=== PATIENT | female | born 1985 ===

== ENCOUNTER 2017-01-31 07:26 | Inpatient (IN) | payer MEDICAID ==
[2017-01-31] MEDS ORDERED: Sodium Citrate/Citric Acid 15 ml Sol PO ONE (07:33)
[2017-01-31] MEDS ORDERED: cefOXitin IV 2 gm in Dextrose 2 GM/50 ML BAG IVPB ONE ×2 (07:33→08:00)
[2017-01-31] MEDS ORDERED: Lactated Ringer's 1,000 ML IV SCH ×2 (07:45→08:45)
[2017-01-31] MEDS ORDERED: Sodium Citrate/Citric Acid 15 ml Sol ONE (08:00)
[2017-01-31] MEDS ORDERED: Oxytocin 20 units in LR 2,000 ML IV ONE (08:01)
--- NOTE | 2017-01-31 08:15 | OBADHP ---
Datetime: 01/31/2017 07:58 Admit Comment, IP Provider: 30 yo , LMP unsure, SCOTT 02/07/17, EGA 39 weeks by ultrasound at 17w 2d, for elective repeat C/S; desires permanent sterilization. (+) AFM; denies LOF, VB, Ctx. issues: NHCAC, denies issues. Record revealed abnormal QUAD screen; no action taken. No krishna omic ultrasound - per patient "insurance wouldn't pay for it"; and "they wouldnt let me pay for the u ltrasound; said it would have been fraud". 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 Denies abnormal Pap PMH: denies PSH: C/S NKDA Meds: none Soc Hx. Denies tobacco, illicit drug or EtOH use. 06/2016; with FOB x 4 years. 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 Lives with and daughter Fam Hx: Mother alive 50 y.o. - DM. Father alive 53 y.o. - no med issues. No known fam h/o cancer P.E.: as above. Mildly obese in NAD. Awake, alert, oriented to time, person and place. Pleasant an d cooperative. Assessment: 31 y.o. P1, 39 weeks; prev C/S - for elective repeat C/S with BTL (papers signed ). Reaffimation of the latter along with consents for anticipated procedure were obtained; R/B/C di scussed. Patient offered no questions. Catefory 1 tracing. Patient last ate 1930 hours 01/30/17. [facility] stable. Plan: 1) Admit 2) NPO 3) Admission labs 4) Continuous EFM 5) Notify anesthesia 6) Notify peds 7) Abdomnal prep and shave 8) Resendiz 9) Mefoxin 10) pediatric audiologist to O.R. Pelvic Type - PN: Adequate Extremities - PN: Normal Abdomen - PN: Normal Back - PN: Normal Breast - PN: Not Done Lungs - PN: Normal Heart - PN: Normal Thyroid - PN: Not Done Neurologic - PN: Normal HEENT - PN: Normal General - PN: Normal Presentation-Admit: Vertex FHR - Baseline A Provider: 140 Contraction Comments Provider: irregular Comments, ACOG Physical Exam: Abdomen: Gravid. Soft. Non tender in all quadrants. Fundal height 40cm All other systems reviewed and are negative Gestation - Est Wks by US: 39.0 IP Hx Assessment: The History has been Reviewed and is Current Vital Signs Provider: Reviewed IP Chief Complaint: Scheduled Section NICHD Variability Prov Fetus A: Moderate 6-25bpm NICHD Accel Fetus A IP Provider: [id number] FHR Category Provider Fetus A: Category I NICHD Decel Fetus A IP Provider: None Dilatation, Provider: FT Effacement, Provider: 0 Station, Provider: -3 Genitourinary Exam: Normal DTRs - PN: Not Done IP Adm Impression: Term, intrauterine ; No Active Labor; Intact Membranes IP Admit Plan: Admit to unit; Initiate Section protocol
[2017-01-31 08:25] LABS: BASO % 0.5 % (0.0-2.0); EOS # 0.1 K/uL (0.0-0.7); HEMOGLOBIN 11.3 g/dL (11.0-16.0); LYMPH % 35.9 % (20.0-40.0); MEAN CELL VOLUME 85.2 fL (81.0-99.0); MEAN CORPUSCULAR HEMOGLOBIN 27.6 pg (27.0-31.0); MEAN CORPUSCULAR HGB CONC 32.4 g/dL (33.0-37.0); MEAN PLATELET VOLUME 9.1 fL (7.2-11.7); MONO # 0.5 K/uL (0.0-0.8); MONO % 9.7 % (0.0-10.0); NEUT % 52.9 % (50.0-75.0); NRBC % 0.1 % (0.0-2.0); RBC 4.11 Mil/uL (3.80-5.20); RED CELL DISTRIBUTION WIDTH 14.8 % (11.5-14.5); WHITE BLOOD COUNT 5.6 K/uL (4.8-10.8)
[2017-01-31 08:42] LABS: SQUAMOUS EPITHIAL 5 /hpf (0-5); URINE BILIRUBIN NEGATIVE (NEGATIVE); URINE BLOOD NEGATIVE (NEGATIVE); URINE CLARITY Clear (Clear); URINE COLOR Yellow (YELLOW); URINE GLUCOSE (UA) NORMAL (Normal); URINE LEUKOCYTE ESTERASE NEG Leu/uL (Negative); URINE NITRATE NEGATIVE (NEGATIVE); URINE PROTEIN NEGATIVE (NEGATIVE); URINE UROBILINOGEN NORMAL mg/dL (0.2-1.0)
[2017-01-31 08:51] LABS: ALB/GLOB RATIO 0.9 (1.0-2.1); AST/SGOT 17 U/L (14-36); GFR AFRICAN-AMERICAN > 60; GFR NON-AFRICAN AMERICAN > 60
[2017-01-31 08:52] LABS: ALT/SGPT 25 U/L (9-52); BLOOD UREA NITROGEN 8 mg/dL (7-17); CALCIUM 8.5 mg/dl (8.6-10.4)
[2017-01-31] MEDS ORDERED: ePHEDrine 50 mg/ml Inj ONE (09:31)
--- NOTE | 2017-01-31 13:39 | PCM.SURG1 ---
Surgeon's Initial Post Op Note - Surgeon's Notes Surgeon: Gilma Lockwood MD Sales Administration Specialist: Enrique Erickson MD. Second Sales Administration Specialist: Keila Castro DO, PGY-1 Type of Anesthesia: Spinal Anesthesia Administered By: Carey Pre-Operative Diagnosis: 39 weeks Gestation. Previous Caesarean section. Desires permanent sterilization Operative Findings: Live female ; ROSA ELENA position. Weight 8lb. Apgars 9/9. Normal uterus; normal ovaries and fallopian tubes, bilaterally Post-Operative Diagnosis: Same Operation Performed: Repeat transverse lower uterine segment Caesarean section; modified Luis procedure Specimen/Specimens Removed: Portion of right and left fallopian tubes Estimated Blood Loss: EBL {In ML}: 800 (U.O. 200 mL clear urine, IVFs 2000 mL LR ) Blood Products Given: N/A Drains Used: No Drains Post-Op Condition: Good Date of Surgery/Procedure: 01/31/17 Time of Surgery/Procedure: 11:30
[2017-01-31] MEDS ORDERED: Morphine Monoject Barrel PCA 1mg/ml IV PRN (14:00)
[2017-01-31 16:48] VITALS: RESP 20; O2SAT 97
--- NOTE | 2017-02-01 04:59 | OP ---
PROCEDURE DATE: 01/31/2017 PREOPERATIVE DIAGNOSES: A 39 weeks gestation, previous Caesarean section, desiring permanent sterilization. POSTOPERATIVE DIAGNOSES: A 39 weeks gestation, previous Caesarean section, desiring permanent sterilization. PROCEDURE PERFORMED: Repeat transverse lower uterine segment Caesarean section and modified Luis procedure. SURGEON: Gilma Lockwood MD PROTECTIVE SIGNAL INSTALLER: Enrique Erickson MD SECOND PROTECTIVE SIGNAL INSTALLER: Keila Castro. DO, PGY1. TYPE OF ANESTHESIA: Spinal. ANESTHESIA ADMINISTERED BY: Poonam Patino MD. OPERATIVE FINDINGS: Live female infant in the right occipital anterior position, weight 8 pounds, Apgars 9 and 9 at 1 and 5 minutes respectively. Normal uterus and normal ovaries and fallopian tubes bilaterally. IV FLUID INTAKE: 2000 mL of lactated Ringer's. ESTIMATED BLOOD LOSS: 800 mL. URINE OUTPUT: 200 mL of clear urine. COMPLICATIONS: None. SPECIMEN: Portion of right and left fallopian tubes. DESCRIPTION OF PROCEDURE: The patient was taken to the operating room after having obtained informed consent of the anticipated procedure. This included a discussion of possible risks and complications including, but not limited to infection requiring antibiotics, hemorrhage requiring blood transfusion, repair of any damaged internal organs, possible Caesarean hysterectomy. Consents were dated, signed, witnessed and placed in the chart. The patient received Mefoxin 2 grams prior to being escorted into the operating room and a Resendiz indwelling catheter had been inserted under sterile conditions. Once in the operating room, she was placed on the operating room table in sitting position where spinal anesthesia was administered without incident. She was immediately repositioned into a supine position. heart tones was auscultated at 156 beats per minute. The abdomen was subsequently prepped and she was draped in the usual sterile fashion. After assuring an adequate level of anesthesia, using the scalpel, a Pfannenstiel incision was made through the previous scar. The incision was carried down through the subcutaneous tissue with the Bovie electrocautery to the level of the fascia. The fascia was identified, it was nicked in the midline and the incision was extended bilaterally using the Bovie electrocautery. The rectus muscle was dissected off the overlying fascia; then the rectus muscle was in the midline by a sharp dissection. The peritoneal cavity was entered by sharp dissection. The vesicouterine reflection was identified and the bladder flap was created. Using the scalpel, a transverse incision was made on the lower uterine segment. The incision was extended bilaterally using the bandage scissors. Amniotomy was performed and a copious amount of clear fluid was obtained. Atraumatic delivery of infant with the findings as above then ensued. Once in the operating field, the 's mouth and nose were bulb suctioned as the umbilical cord was doubly clamped and cut. The was handed off the operative field to the pediatricians in attendance. Manual extraction of the placenta then ensued without incident; it was grossly intact with three vessels present in the cord. The uterus was then exteriorized for closure. The uterine incision was closed in one layer using 0 Vicryl. This was in a running interlocking fashion. Additional [id number]-[id number] stitches were placed at 3 locations to assure adequate hemostasis using 2-0 Biosyn. After assuring adequate hemostasis on the uterine incision, attention was directed to the posterior aspect of the uterus; pelvic viscera as above. Beginning with the right fallopian tube in the ampullary segment, a portion of the mesosalpinx was grasped using Tori clamp. Using plain catgut in two ties, a knuckle was created. The intervening mesosalpinx was pierced. This segment of the fallopian tube was resected and submitted to the pathology for confirmation. Adequate hemostasis was assured. A similar procedure was performed on the left fallopian tube. After assuring adequate hemostasis, attention was redirected to the anterior aspect of the uterus. Surgicel was placed along the uterine incision and the bladder flap was reapproximated using 2-0 chromic in a running fashion. Copious irrigation had been performed of the abdominal cavity. The uterus was then returned to the abdominal cavity. The paracolic gutters were all cleared of debris and again hemostasis was assured in the ligated ends of both fallopian tubes. The parietal peritoneum was reapproximated using 2-0 chromic in a running fashion. The muscle was reapproximated in the midline using 2-0 chromic in interrupted stitches. The fascia was reapproximated using 1-0 Vicryl in a running fashion in two halves. The subcutaneous tissue was reapproximated using plain catgut in a running fashion. The skin was reapproximated using surgical clips. A pressure dressing was applied. The patient was then repositioned in a frog-like position. Bimanual exploration was performed. The uterus was evacuated of its clots. The uterus was noted to be firm and contracted. The patient was transferred back to R #3 in stable condition. Infant had been transferred to the [facility] also in stable condition. Dr. Erickson was present throughout the entire procedure from beginning to end. His surgical presence was necessary for: 1. Adequate visualization of the operative martínez at all times. 2. Assuring hemostasis at all times. 3. The safe and atraumatic delivery of the . Gilma MD Fabián MTDD
[2017-02-01] MEDS: Oxycodone/Acetaminophen 5/325 mg Tab PO PRN ×5 (08:00→22:08)
--- NOTE | 2017-02-01 09:15 | OBPPN ---
Datetime: 02/01/2017 07:42 PP Pain Prov: Within normal limits PP Nausea Prov: Denies PP Flatus Prov: Yes PP BM Prov: No PP Heart Prov: Normal PP Lungs Prov: Normal PP Abdomen/Uterus Prov: Normal PP Lochia Prov: Normal PP CVA Tenderness Prov: Normal PP Extremities Prov: Normal PP C/S Incision Prov: Normal PP Progress Prov: Not Applicable PP Impression Prov: Normal progression PP Plan Prov: Continue present management PP Progress Note Prov: S-patient denies any complaints.reports adequate pain control.denies nausea, vomiting, headache, chest pain, shortness of breath, numbness or tingling in hands and feet O-VSS Afebrile Fundus firm and below umbilcius Incision clean, dry and intact A/P Patient s/p csection and btl pod 1 doing well -continue routine post op care Vital Signs Provider PP: Reviewed; Within Normal Limits
[2017-02-01 09:17] LABS: BASO % 0.5 % (0.0-2.0); EOS # 0.1 K/uL (0.0-0.7); EOS % 0.8 % (0.0-4.0); HEMOGLOBIN 10.9 g/dL (11.0-16.0); LYMPH # 1.2 K/uL (1.0-4.3); LYMPH % 16.8 % (20.0-40.0); MEAN CELL VOLUME 85.9 fL (81.0-99.0); MEAN CORPUSCULAR HEMOGLOBIN 27.9 pg (27.0-31.0); MEAN CORPUSCULAR HGB CONC 32.5 g/dL (33.0-37.0); MONO # 0.5 K/uL (0.0-0.8); MONO % 7.8 % (0.0-10.0); NEUT # 5.1 K/uL (1.8-7.0); NEUT % 74.1 % (50.0-75.0); RBC 3.9 Mil/uL (3.80-5.20); RED CELL DISTRIBUTION WIDTH 15.3 % (11.5-14.5); WHITE BLOOD COUNT 6.9 K/uL (4.8-10.8)
[2017-02-01] MEDS: Simethicone 80 mg Chewtab PO SCH ×4 (10:10→22:09)
--- NOTE | 2017-02-02 07:47 | OBPPN ---
Datetime: 02/02/2017 07:45 PP Pain Prov: Within normal limits PP Nausea Prov: Denies PP Flatus Prov: Yes PP Abdomen/Uterus Prov: Normal PP Lochia Prov: Normal PP Extremities Prov: Normal PP C/S Incision Prov: Normal PP Comments Phys Exam Prov: fudus below umblicus ext mild edema,no calf ten incision clean and dry PP Impression Prov: Normal progression PP Plan Prov: Continue present management PP Progress Note Prov: pt was seen at bed side, pain under control,no n/v, tolerating deit,voiding,m in lochia, flatus+ pod#2 s/p c/s cont post op care pain management encourage ambulation Vital Signs Provider PP: Reviewed; Within Normal Limits
[2017-02-02] MEDS: Simethicone 80 mg Chewtab PO SCH ×4 (09:16→21:48)
[2017-02-02] MEDS: Oxycodone/Acetaminophen 5/325 mg Tab PO PRN ×3 (09:16→21:49)
[2017-02-03 00:14] VITALS: BP 103/69; PULSE 63; TEMP 97.9
--- NOTE | 2017-02-03 08:41 | OBDCSUM ---
Datetime: 02/03/2017 08:00 Discharged to, Provider: Home Follow up at, Provider: nida Disch Instr Activity: Normal activity Disch Instr Diet: Regular Discharge Instructions, Provider: Routine instructions given Discharge Diagnosis, Provider: Term Delivered Discharge Time: 02/03/2017 11:00 Follow up in weeks, Provider: 02-09-17 Disch Referrals: None Disch Activity Restrictions: No lifting; Minimize stair-climbing; No sexual activity; Nothing in vag magdalene - [place], tampons, douche Discharge Comment, Provider: go toe r if you ahv feevr, severe pain, heavy bleedng, pain or redness in calf muscles or any otehr problems Discharge Diagnosis Prov Other: s/p csection and btl
[2017-02-03] MEDS: Simethicone 80 mg Chewtab PO SCH (09:48)
--- NOTE | 2017-02-03 11:45 | OBPPN ---
Datetime: 02/03/2017 08:37 PP Pain Prov: Within normal limits PP Nausea Prov: Denies PP Flatus Prov: Yes PP Heart Prov: Normal PP Lungs Prov: Normal PP Abdomen/Uterus Prov: Normal PP Lochia Prov: Normal PP CVA Tenderness Prov: Normal PP Extremities Prov: Normal PP C/S Incision Prov: Normal PP Progress Prov: Normal PP Impression Prov: Normal progression PP Plan Prov: Discharge PP Progress Note Prov: S-patient denies any complaints.denies nausea, vomiting, headache, chest pain , shortness of breath, numbness or tingling in hands and feet O-VSS afebrile Abdomen soft and nontener Fundus firm and below umbilcius Incision clean, dry and intact extremities no calf tenderness A/P Patient s/p csection pod 3 doing well -discharge today -follow up in clinic in 1 week for incision check Vital Signs Provider PP: Reviewed; Within Normal Limits
== END 2017-02-03 13:10 | disposition home or self-care (01) | DRG 371 ==
LOC: C.4D 07:26 → C.4M 13:18
PROVIDERS: ADMIT Obstetrics & Gynecology; ATTEND Obstetrics & Gynecology
PROC: 10D00Z1 Extraction of Products of Conception, Low, Open Approach (ICD-10-PCS; principal; 2017-01-31)
PROC: 0UB70ZZ Excision of Bilateral Fallopian Tubes, Open Approach (ICD-10-PCS; 2017-01-31)
DX: O34.211 Maternal care for low transverse scar from previous cesarean delivery (principal); Z30.2 Encounter for sterilization; Z3A.39 39 weeks gestation of pregnancy; Z37.0 Single live birth

== ENCOUNTER 2017-04-24 11:23 | Emergency (ER) | payer SELFPAY ==
[2017-04-24 11:28] VITALS: BMI 34.3
[2017-04-24 11:30] VITALS: O2SAT 100
--- NOTE | 2017-04-24 11:50 | C.PDOC ---
History Of Present Illness 31 year old female, 2.5 months status post and 2 days status post wisdom tooth removal with no other past medical history and no medications, presents to the ED for evaluation of right lower quadrant pain since 08:00 this morning. Patient reports that pain began while she was working in a [employer]. She describes pain as sharp, constant, and radiating to her back. She reports associated sweating, nausea and 3 episodes of vomiting at onset of pain which have since resolved. She states vomit was clear. She denies fever, headache, sore throat, otalgia, dysuria, hematuria, constipation, or diarrhea. No trauma. She notes that she has had similar symptoms in past which were related to a UTI while she was . Time Seen by Provider: 04/24/17 11:34 Chief Complaint (Nursing): Abdominal Pain History Per: Patient History/Exam Limitations: no limitations Onset/Duration Of Symptoms: Hrs Current Symptoms Are (Timing): Still Present Location Of Pain/Discomfort: RLQ Radiation Of Pain To:: Back Quality Of Discomfort: Sharp Associated Symptoms: Nausea, Vomiting Past Medical History Reviewed: Historical Data, Nursing Documentation, Vital Signs Vital Signs: Last Vital Signs Temp 98.3 F 04/24/17 11:29 Pulse 60 04/24/17 11:29 Resp 20 04/24/17 11:29 BP 135/83 04/24/17 11:29 Pulse Ox 100 04/24/17 14:17 - Medical History PMH: Cardia Arrhythmia, Diabetes Denies: Asthma, HTN - [facility] EXCISION OF BILATERAL FALLOPIAN TUBES, OPEN APPROACH (01/31/17) EXTRACTION OF POC, LOW CERVICAL, OPEN APPROACH (01/31/17) MASTOTOMY (03/15/13) Family History: States: Unknown Family Hx - Social History Hx Tobacco Use: No Hx Alcohol Use: No Hx Substance Use: No - Immunization History Hx Tetanus Toxoid Vaccination: Yes Hx Influenza Vaccination: No Hx Pneumococcal Vaccination: No Review Of Systems Constitutional: Positive for: Sweats. Negative for: Fever ENT: Negative for: Ear Pain, Throat Pain Gastrointestinal: Positive for: Nausea, Vomiting, Abdominal Pain. Negative for : Diarrhea, Constipation Genitourinary: Negative for: Dysuria, Hematuria Neurological: Negative for: Headache Physical Exam - Physical Exam Appears: Well, No Acute Distress Skin: Normal Color, Warm, Dry Head: Atraumatic, Normacephalic Throat: Normal Cardiovascular: Rhythm Regular, No Murmur Respiratory: Normal Breath Sounds Gastrointestinal/Abdominal: Normal Exam, Soft, No Tenderness, No Guarding, No Rebound Extremity: No Pedal Edema Neurological/Psych: Oriented x3, Other (moving all extremities ) ED Course And Treatment O2 Sat by Pulse Oximetry: 100 Medical Decision Making Medical Decision Making: Impression: 31 year old female with right lower quadrant pain. Plan: Urine dip Urine Famotidine Ibuprofen Patient pain free, tolerating PO, UA unremarkable. Disposition Counseled Patient/Family Regarding: Studies Performed, Diagnosis, Need For Followup - Disposition Disposition: HOME/ ROUTINE Disposition Time: 14:21 Condition: STABLE Instructions: Abdominal Pain (ED) Forms: [facility] (Welsh), General Discharge Instructions - POA Present On Arrival: None - Clinical Impression Clinical Impression: Abdominal pain - Scribe Statement The provider has reviewed the documentation as recorded by the Camibrebecca Christopher Provider Attestation: All medical record entries made by the Camibe were at my direction and personally dictated by me. I have reviewed the chart and agree that the record accurately reflects my personal performance of the history, physical exam, medical decision making, and the department course for this patient. I have also personally directed, reviewed, and agree with the discharge instructions and disposition.
[2017-04-24 12:27] LABS: RBC URINE 1 /hpf (0-3); URINE BACTERIA RARE (<OCC); URINE BILIRUBIN NEGATIVE (NEGATIVE); URINE BLOOD NEGATIVE (NEGATIVE); URINE COLOR Yellow (YELLOW); URINE GLUCOSE (UA) NORMAL (Normal); URINE KETONE TRACE mg/dL (NEGATIVE); URINE LEUKOCYTE ESTERASE NEG Leu/uL (Negative); URINE PROTEIN NEGATIVE (NEGATIVE); URINE UROBILINOGEN NORMAL mg/dL (0.2-1.0); WBC URINE 2 /hpf (0-5)
[2017-04-24 14:45] VITALS: BP 142/84; PULSE 61; RESP 16; TEMP 98.2
--- NOTE | 2017-04-24 16:26 | RAD ---
HISTORY: Stomach pain COMPARISON: No prior. FINDINGS: BOWEL: Normal. No obstruction. No free air. BONES: Normal. OTHER FINDINGS: None. IMPRESSION: No significant or acute findings to account for/ related to the clinical presentation. Please note: No preliminary report/ innterpretation of this examination provided by emergency department personnel.
== END 2017-04-24 14:45 | disposition home or self-care (01) ==
LOC: C.ER 11:23
DX: R10.31 Right lower quadrant pain (principal)